=== PATIENT | female | born 1975 | race Caucasian/White ===

== ENCOUNTER 2016-09-09 18:56 | Emergency (ER) | payer SELFPAY ==
[~2016-09-09] VITALS: Ht 177.8 cm; Wt 69.2 kg
[~2016-09-09 18:56] MED LIST: BACTRIM,SEPT1 TABLET PO; DILAUDID2 MG PO; ENDOCET 5-3251 EACH PO; FLEXERIL10 MG PO; IBUPROFEN600 MG PO; KEFLEX500 MG PO; MOBIC7.5 MG PO; MOTRIN600 MG PO; PERCOCET 5/31 TABLET PO; ROXICODONE5 MG PO; ULTRAM50 MG PO; VISTARIL50 MG PO; ZOFRAN ODT4 MG PO
[2016-09-09 19:42] LABS: HEMATOCRIT 43.3 % (36.0-46.0); MCH 30.4 PG (29.0-34.0); MCHC 34.6 G/DL (30.0-36.0); MCV 87.8 FL (83-99); MEAN PLAT.VOLUME 10.4 uM^3 (9.5-12.4); PLATELET COUNT 230 K/uL (156-360); RBC DIS.WIDTH-CV 13.4 % (11.8-14.6); RBC DIS.WIDTH-SD 42.5 % (39-53); RED BLOOD COUNT 4.93 M/uL (3.80-5.20)
[2016-09-09 19:49] LABS: CHLORIDE 104 mEq/L (99-109); POTASSIUM 4.3 mEq/L (3.7-5.4); SODIUM 135 mEq/L (136-147)
[2016-09-09 19:51] LABS: GLUCOSE 92 mg/dL (70-99)
[2016-09-09 19:52] LABS: ANION GAP 7 MEQ/L (2-14)
[2016-09-09 19:53] LABS: TOTAL BILIRUBIN 0.3 mg/dL (0.0-1.0)
[2016-09-09 19:54] LABS: ALKALINE PHOSPHATASE 85 IU/L (3-129)
[2016-09-09 19:54] LABS: ADD MIUA? NO; BILIRUBIN NEGATIVE; BLOOD NEGATIVE; COLOR YELLOW ((YELLOW)); GLUCOSE (STRIP) NEGATIVE; KETONES NEGATIVE; LEUKOCYTES NEGATIVE; NITRITE NEGATIVE; PH, URINE 6.5 (5-8); PROTEIN (STRIP) NEGATIVE; SPECIFIC GRAVITY 1.009 (1.000-1.030); UCUL ADDED? NO; UROBILINOGEN 0.2 MG/DL (0.2-1.0)
[2016-09-09 19:55] LABS: GFR ESTIMATE (CALCULATED) > 59 mL/min/
[2016-09-09 19:56] LABS: DIRECT BILIRUBIN 0.1 mg/dL (0.0-0.3); UREA NITROGEN (BUN) 5 mg/dL (9-23)
[2016-09-09 19:58] LABS: LIPASE 34 U/L (1.0-51.0)
[2016-09-09] MEDS ORDERED: ULTRAM50 MG PO (22:58)
[2016-09-09] MEDS ORDERED: ZOFRAN ODT4 MG PO (22:58)
[2016-09-09 23:17] VITALS: BP 119/76
== END 2016-09-09 23:19 | disposition home or self-care (01) ==
LOC: EME 18:56
DX: R10.31 Right lower quadrant pain (principal); R11.0 Nausea; R31.9 Hematuria, unspecified; Z87.442 Personal history of urinary calculi; F17.200 Nicotine dependence, unspecified, uncomplicated
CPT/HCPCS: 74177; 80048; 80076; 81003; 83690; 85027; 99281; 99284; J1170; J1885; J2405; J7030

== ENCOUNTER 2017-02-20 | Emergency (ER) | payer SELFPAY ==
[~2017-02-20] VITALS: Ht 177.8 cm; Wt 70.0 kg
[2017-02-20 01:19] LABS: HEMATOCRIT 40.8 % (36.0-46.0); MCH 31.8 PG (29.0-34.0); MCHC 33.3 G/DL (30.0-36.0); MCV 95.3 FL (83-99); MEAN PLAT.VOLUME 10.2 uM^3 (9.5-12.4); PLATELET COUNT 251 K/uL (156-360); RBC DIS.WIDTH-CV 12.8 % (11.8-14.6); RBC DIS.WIDTH-SD 44.8 % (39-53); RED BLOOD COUNT 4.28 M/uL (3.80-5.20); WHITE BLOOD COUNT 10.6 K/uL (4.1-10.2)
[2017-02-20 01:30] LABS: D-DIMER ELISA 0.53 mg/L FEU (< 0.57)
[2017-02-20 01:43] LABS: TROP-I INTERPRETATION NEGATIVE; TROPONIN-I < 0.01 ng/mL (0.0-0.30)
[2017-02-20 01:59] LABS: CHLORIDE 103 mEq/L (99-109); POTASSIUM 3.5 mEq/L (3.7-5.4); SODIUM 136 mEq/L (136-147)
[2017-02-20 02:01] LABS: GLUCOSE 93 mg/dL (70-99)
[2017-02-20 02:02] LABS: ANION GAP 10 MEQ/L (2-14)
[2017-02-20 02:05] LABS: GFR ESTIMATE (CALCULATED) > 59 mL/min/
[2017-02-20 02:06] LABS: UREA NITROGEN (BUN) 12 mg/dL (9-23)
[2017-02-20] MEDS ORDERED: ZOFRAN4 MG PO (03:54)
[2017-02-20] MEDS ORDERED: ULTRAM50 MG PO (04:05)
[2017-02-20 04:10] VITALS: BP 136/88
== END 2017-02-20 04:09 | disposition home or self-care (01) ==
LOC: EME
PROVIDERS: Emergency Medicine
DX: R07.9 Chest pain, unspecified (principal); Z87.442 Personal history of urinary calculi; F17.200 Nicotine dependence, unspecified, uncomplicated
CPT/HCPCS: 71020; 71275; 80048; 83605; 83880; 84484; 85027; 85379; 93005; 99281; 99284; J2270

== ENCOUNTER 2017-08-29 15:43 | Emergency (ER) | payer OTHER ==
[~2017-08-29] VITALS: Ht 177.8 cm; Wt 70.6 kg
[~2017-08-29 15:43] MED LIST changes: +ZOFRAN4 MG PO
[2017-08-29] MEDS ORDERED: NEURONTIN300 MG PO (20:25)
[2017-08-29] MEDS ORDERED: MOBIC7.5 MG PO (20:25)
[2017-08-29] MEDS ORDERED: ZOFRAN ODT4 MG PO (22:21)
[2017-08-29 22:31] VITALS: BP 121/85
== END 2017-08-29 22:33 | disposition home or self-care (01) ==
LOC: EME 15:43 → RME 15:43
DX: M54.12 Radiculopathy, cervical region (principal); M25.511 Pain in right shoulder; M79.601 Pain in right arm; R09.89 Other specified symptoms and signs involving the circulatory and respiratory systems; R50.9 Fever, unspecified; F17.200 Nicotine dependence, unspecified, uncomplicated
CPT/HCPCS: 72050; 99281; 99284; J3010